=== PATIENT | female | born 1940 | race Caucasian/White ===

== ENCOUNTER 2017-03-20 23:02 | Emergency (ER) | payer MEDICARE ==
[~2017-03-20] VITALS: Ht 147.3 cm; Wt 62.6 kg
[2017-03-20 23:11] VITALS: BP_SYST 137
[2017-03-21 00:01] LABS: LYMPHOCYTES % (AUTO) 14.4 % (20.5-51.5); MEAN CORPUSCULAR HEMOGLOBIN 29 pg (27-31); MEAN CORPUSCULAR HGB CONC 32 % (32-36)
[2017-03-21 00:06] LABS: BASOPHILS % (AUTO) 0.2 % (0.0-2.0); EOSINOPHILS # (AUTO) 0.7 K/uL (0.0-0.4); EOSINOPHILS % (AUTO) 5.6 % (0.0-4.0); HEMATOCRIT 41.8 % (36-48); HEMOGLOBIN 13.2 g/dL (12.0-16.0); LYMPHOCYTES # (AUTO) 1.8 K/uL (1.0-5.5); MEAN CORPUSCULAR VOLUME 92 fL (79.0-98.0); MONOCYTES % (AUTO) 8.3 % (1.7-9.3); NEUTROPHILS # (AUTO) 8.8 K/uL (1.8-7.7); NEUTROPHILS % (AUTO) 71.5 % (40.0-70.0); PLATELET COUNT (AUTO) 391 K/uL (130-430); RED BLOOD CELL COUNT(AUTO) 4.56 MIL/uL (4.2-6.2); RED CELL DISTRIBUTION WIDTH 12.8 % (9.0-15.0); WHITE BLOOD COUNT (AUTO) 12.3 K/uL (4.8-10.8)
[2017-03-21 00:16] LABS: ANION GAP 8 (5-15); CALCIUM 9.5 mg/dL (8.4-11.0); CHLORIDE 103 mmol/L (98-107); GLUCOSE 152 mg/dL (70-99); POTASSIUM 3.2 mmol/L (3.5-5.1); SODIUM SERUM 139 mmol/L (136-145); UREA NITROGEN, BLOOD 22 mg/dL (8-21)
[2017-03-21 00:21] LABS: ALANINE AMINOTRANSFERASE 16 U/L (12-78); ALBUMIN 3.3 g/dL (3.4-4.8); ASPARTATE AMINOTRANSFERASE 12 U/L (10-37); TOTAL BILIRUBIN 0.7 mg/dL (0.0-1.0)
[2017-03-21 00:29] LABS: BILIRUBIN,URINE NEGATIVE (NEGATIVE); BLOOD, URINE TRACE (NEGATIVE); CLARITY/URINE SL CLOUDY (CLEAR); COLOR,URINE YELLOW (YELLOW); GLUCOSE,URINE NEGATIVE (NEGATIVE); KETONES,URINE TRACE (NEGATIVE); LEUKOCYTE ESTERASE ,URINE 3+ (NEGATIVE); NITRITE, URINE POSITIVE (NEGATIVE); PROTEIN URINE TRACE (NEGATIVE); UROBILINOGEN,URINE 0.2 (0.2-1.0)
[2017-03-21 00:34] LABS: BACTERIA,URINE MANY /HPF (None Seen); WBC,URINE 50-80 /HPF (0-3)
[2017-03-21] MEDS ORDERED: LISI-600 PO (00:59)
[2017-03-21] MEDS ORDERED: AMLO2.5T2 PO (00:59)
[2017-03-21] MEDS ORDERED: ASA81 PO (00:59)
[2017-03-21] MEDS ORDERED: HYDR25TA4 PO (00:59)
[2017-03-21] MEDS ORDERED: POTA10TA80 PO (00:59)
[2017-03-21] MEDS ORDERED: DOCU250C PO (00:59)
[2017-03-21] MEDS ORDERED: SIMV20TA6 PO (00:59)
[2017-03-21] MEDS ORDERED: LEVOFLOXACIN 500 MG/D5W 100 ML IV ONE (02:00)
[2017-03-21 04:04] VITALS: BP_SYST 122
== END 2017-03-21 04:04 | disposition short-term general hospital (02) ==
LOC: SED 23:02
DX: A41.9 Sepsis, unspecified organism (principal); N39.0 Urinary tract infection, site not specified; I10 Essential (primary) hypertension; Z96.651 Presence of right artificial knee joint; Z90.710 Acquired absence of both cervix and uterus; Z90.49 Acquired absence of other specified parts of digestive tract; Z88.2 Allergy status to sulfonamides; Z79.899 Other long term (current) drug therapy
CPT/HCPCS: 36415; 71010; 80053; 81000; 83605; 85025; 87040; 87086; 93005; 96365; 99285; J1956

== ENCOUNTER 2023-10-01 23:09 | Emergency (ER) | payer MEDICARE ==
[~2023-10-01] VITALS: Ht 144.8 cm; Wt 63.5 kg
[~2023-10-01 23:09] MED LIST: AMLO2.5T2 PO; ASA81 PO; DOCU250C14 PO; HYDR25TA4 PO; LISI20TA30 PO; POTA-217 PO; SIMV-43 PO
[2023-10-01 23:10] VITALS: BP_SYST 135; PULSE 113; RESP 35; TEMP 98.6; O2SAT 97
[2023-10-01] MEDS: IPRATROPIUM/ALBUTEROL SULFATE 3 ML AMPUL.NEB (DUONEB) INH ONE (23:51)
[2023-10-02] MEDS: methylPREDNISolone SOD SUCC/PF 62.5 MG/ML VIAL IVP ONE (00:21)
[2023-10-02 00:24] LABS: BASOPHILS % (AUTO) 0.4 % (0.0-2.0); EOSINOPHILS # (AUTO) 0.2 K/uL (0.0-0.4); EOSINOPHILS % (AUTO) 3.2 % (0.0-4.0); HEMATOCRIT 33.9 % (36-48); HEMOGLOBIN 11.4 g/dL (12.0-16.0); LYMPHOCYTES % (AUTO) 38.9 % (20.5-51.5); MEAN CORPUSCULAR HEMOGLOBIN 31 pg (27-31); MEAN CORPUSCULAR HGB CONC 34 % (32-36); MEAN CORPUSCULAR VOLUME 93 fL (79.0-98.0); MONOCYTES # (AUTO) 0.6 K/uL (0.0-1.0); MONOCYTES % (AUTO) 12.7 % (1.7-9.3); NEUTROPHILS # (AUTO) 2.3 K/uL (1.8-7.7); NEUTROPHILS % (AUTO) 44.8 % (40.0-70.0); PLATELET COUNT (AUTO) 312 K/uL (130-430); RED BLOOD CELL COUNT(AUTO) 3.66 MIL/uL (4.2-6.2); RED CELL DISTRIBUTION WIDTH 13.6 % (9.0-15.0); WHITE BLOOD COUNT (AUTO) 5.1 K/uL (4.8-10.8)
[2023-10-02 00:32] LABS: BILIRUBIN,URINE 1+ (NEGATIVE); BLOOD, URINE NEGATIVE (NEGATIVE); CLARITY/URINE CLOUDY (CLEAR); COLOR,URINE YELLOW (YELLOW); GLUCOSE,URINE NEGATIVE (NEGATIVE); KETONES,URINE NEGATIVE (NEGATIVE); LEUKOCYTE ESTERASE ,URINE 2+ (NEGATIVE); NITRITE, URINE NEGATIVE (NEGATIVE); PROTEIN URINE TRACE (NEGATIVE)
[2023-10-02 00:38] LABS: ALANINE AMINOTRANSFERASE 16 U/L (12-78); ANION GAP 5 (5-15); ASPARTATE AMINOTRANSFERASE 12 U/L (10-37); BILIRUBIN,DIRECT 0.1 mg/dL (0.0-0.3); CALCIUM 7.7 mg/dL (8.4-11.0); CARBON DIOXIDE 29 mmol/L (23-29); CHLORIDE 108 mmol/L (98-107); CREATININE 1.21 mg/dL (0.55-1.30); GLUCOSE 111 mg/dL (74-106); POTASSIUM 4.4 mmol/L (3.5-5.1); SODIUM SERUM 142 mmol/L (136-145); TOTAL BILIRUBIN 0.3 mg/dL (0.0-1.0); TOTAL PROTEIN, SERUM 6.8 g/dL (6.4-8.3); UREA NITROGEN, BLOOD 20 mg/dL (8-21)
[2023-10-02 00:55] LABS: BACTERIA,URINE MANY /HPF (None Seen); RBC,URINE 0-3 /HPF (0-3); WBC,URINE 50-80 /HPF (0-3)
[2023-10-02] MEDS: ALBUTEROL SULFATE 0.083% 2.5 MG/3 ML VIAL.NEB INH ONE (00:56)
[2023-10-02] MEDS: MAGNESIUM SULFATE 50 ML IV ONE (01:10)
[2023-10-02] MEDS ORDERED: PRED20TA PO (01:48)
[2023-10-02] MEDS ORDERED: ALBMDI INH (01:48)
[2023-10-02] MEDS ORDERED: FLUT1DIS3 INH (01:48)
[2023-10-02 02:05] VITALS: BP_SYST 139; PULSE 113; RESP 35; TEMP 98.6; O2SAT 96
[2023-10-04] MEDS ORDERED: NITR-85 PO (16:13)
== END 2023-10-02 02:06 | disposition home or self-care (01) ==
LOC: SED 23:09
DX: J45.901 Unspecified asthma with (acute) exacerbation (principal); R06.02 Shortness of breath; R05.9 Cough, unspecified; I10 Essential (primary) hypertension; Z88.2 Allergy status to sulfonamides; Z88.5 Allergy status to narcotic agent; Z88.6 Allergy status to analgesic agent; Z79.899 Other long term (current) drug therapy
CPT/HCPCS: 36415; 71045; 80048; 80076; 81000; 81001; 81015; 83605; 85025; 87040; 87086; 87186; 94640; 96365; 96375; 99284; J2930; J3475

== ENCOUNTER 2023-11-16 15:40 | Emergency (ER) | payer MEDICARE ==
[~2023-11-16] VITALS: Ht 142.2 cm; Wt 64.9 kg
[~2023-11-16 15:40] MED LIST changes: +ALBMDI INH; +FLUT1DIS3 INH; +NITR-85 PO; +PRED20TA PO
[2023-11-16 16:11] VITALS: BP_SYST 129; PULSE 101; RESP 16; TEMP 97.7; O2SAT 94
[2023-11-16] MEDS: KETOROLAC TROMETHAMINE 30 MG VIAL IM ONE (16:30)
[2023-11-16 16:48] LABS: BASOPHILS % (AUTO) 0.5 % (0.0-2.0); EOSINOPHILS # (AUTO) 0.1 K/uL (0.0-0.4); EOSINOPHILS % (AUTO) 2.7 % (0.0-4.0); HEMOGLOBIN 11.1 g/dL (12.0-16.0); LYMPHOCYTES # (AUTO) 1.5 K/uL (1.0-5.5); LYMPHOCYTES % (AUTO) 35.4 % (20.5-51.5); MEAN CORPUSCULAR HEMOGLOBIN 31 pg (27-31); MEAN CORPUSCULAR HGB CONC 34 % (32-36); MEAN CORPUSCULAR VOLUME 92 fL (79.0-98.0); MONOCYTES # (AUTO) 0.5 K/uL (0.0-1.0); MONOCYTES % (AUTO) 11.3 % (1.7-9.3); NEUTROPHILS # (AUTO) 2.1 K/uL (1.8-7.7); NEUTROPHILS % (AUTO) 50.1 % (40.0-70.0); PLATELET COUNT (AUTO) 287 K/uL (130-430); RED BLOOD CELL COUNT(AUTO) 3.59 MIL/uL (4.2-6.2); RED CELL DISTRIBUTION WIDTH 13.7 % (9.0-15.0); WHITE BLOOD COUNT (AUTO) 4.3 K/uL (4.8-10.8)
[2023-11-16 17:11] LABS: ALANINE AMINOTRANSFERASE 12 U/L (12-78); ALBUMIN 3.1 g/dL (3.4-4.8); ANION GAP 8 (5-15); ASPARTATE AMINOTRANSFERASE 14 U/L (10-37); BILIRUBIN,DIRECT 0.2 mg/dL (0.0-0.3); CALCIUM 8.6 mg/dL (8.4-11.0); CARBON DIOXIDE 27 mmol/L (23-29); CHLORIDE 105 mmol/L (98-107); CREATININE 1.08 mg/dL (0.55-1.30); GLUCOSE 92 mg/dL (74-106); LIPASE 36 U/L (16-77); POTASSIUM 3.7 mmol/L (3.5-5.1); SODIUM SERUM 140 mmol/L (136-145); TOTAL BILIRUBIN 0.6 mg/dL (0.0-1.0); UREA NITROGEN, BLOOD 19 mg/dL (8-21)
[2023-11-16 17:47] LABS: BILIRUBIN,URINE NEGATIVE (NEGATIVE); BLOOD, URINE NEGATIVE (NEGATIVE); COLOR,URINE YELLOW (YELLOW); GLUCOSE,URINE NEGATIVE (NEGATIVE); KETONES,URINE NEGATIVE (NEGATIVE); LEUKOCYTE ESTERASE ,URINE 2+ (NEGATIVE); NITRITE, URINE POSITIVE (NEGATIVE); PROTEIN URINE NEGATIVE (NEGATIVE)
[2023-11-16 17:54] LABS: CLARITY/URINE HAZY (CLEAR)
[2023-11-16 17:55] LABS: BACTERIA,URINE MODERATE /HPF (None Seen); MUCUS,URINE None Seen /LPF (None Seen); RBC,URINE NONE SEEN /HPF (0-3); WBC,URINE 20-50 /HPF (0-3)
[2023-11-16] MEDS ORDERED: cefTRIAXone 1 GM IVPB PREMIX 50 ML IV ONE (19:05)
[2023-11-16] MEDS: cefTRIAXone 1 GM in D5W 50 ML IV ONE (19:14)
[2023-11-16] MEDS ORDERED: CIPR-260 PO (19:34)
[2023-11-16] MEDS ORDERED: ONDA-8 TL (19:34)
[2023-11-16 19:58] VITALS: BP_SYST 130; PULSE 82; RESP 18; TEMP 97.5; O2SAT 94
[2023-11-16] MEDS ORDERED: predniSONE 20 MG TABLET ONE (20:43)
[2023-11-20] MEDS ORDERED: NITR-85 PO (06:24)
== END 2023-11-16 19:58 | disposition home or self-care (01) ==
LOC: SED 15:40
DX: R07.89 Other chest pain (principal); N39.0 Urinary tract infection, site not specified; R10.13 Epigastric pain; J45.909 Unspecified asthma, uncomplicated; I10 Essential (primary) hypertension; Z79.82 Long term (current) use of aspirin; Z79.899 Other long term (current) drug therapy; Z79.2 Long term (current) use of antibiotics; Z88.5 Allergy status to narcotic agent; Z88.1 Allergy status to other antibiotic agents; Z88.2 Allergy status to sulfonamides; Z88.8 Allergy status to other drugs, medicaments and biological substances
CPT/HCPCS: 99284; 96365; 71045; 80076; 80048; 81001; 83880; 83690; 85025; 87040; 87086; 87186; 84484; 36415; 83605; J7512; J0696; 81000; 81015; J1885

== ENCOUNTER 2024-01-18 20:00 | Emergency (ER) | payer MEDICARE ==
[~2024-01-18] VITALS: Ht 142.2 cm; Wt 61.2 kg
[~2024-01-18 20:00] MED LIST changes: +CEPH250C PO; +CIPR-260 PO; +ONDA-8 TL; +VALA10002 PO
[2024-01-18 20:33] VITALS: BP_SYST 140; PULSE 85; RESP 18; TEMP 97.2; O2SAT 100
[2024-01-18 23:46] LABS: BILIRUBIN,URINE NEGATIVE (NEGATIVE); CLARITY/URINE CLEAR (CLEAR); COLOR,URINE YELLOW (YELLOW); GLUCOSE,URINE NEGATIVE (NEGATIVE); KETONES,URINE NEGATIVE (NEGATIVE); LEUKOCYTE ESTERASE ,URINE 2+ (NEGATIVE); NITRITE, URINE NEGATIVE (NEGATIVE); PROTEIN URINE TRACE (NEGATIVE)
[2024-01-18 23:50] LABS: BLOOD, URINE TRACE (NEGATIVE)
[2024-01-19 00:31] LABS: BACTERIA,URINE MODERATE /HPF (None Seen)
[2024-01-19] MEDS: cephALEXin 500 MG CAPSULE PO ONE (00:33)
[2024-01-19] MEDS ORDERED: CEPH250C PO (00:33)
[2024-01-19 00:45] VITALS: BP_SYST 140; PULSE 85; RESP 18; TEMP 97.2; O2SAT 100
== END 2024-01-19 00:45 | disposition home or self-care (01) ==
LOC: SED 20:00
DX: N39.0 Urinary tract infection, site not specified (principal); J45.909 Unspecified asthma, uncomplicated; I10 Essential (primary) hypertension; Z88.1 Allergy status to other antibiotic agents; Z88.5 Allergy status to narcotic agent; Z88.6 Allergy status to analgesic agent; Z88.8 Allergy status to other drugs, medicaments and biological substances; Z79.899 Other long term (current) drug therapy; Z79.2 Long term (current) use of antibiotics
CPT/HCPCS: 81000; 81001; 81015; 87086; 87186; 99283